=== PATIENT | male | born 1995 ===

== ENCOUNTER 2018-03-05 17:45 | Emergency (ER) | payer OTHER ==
[2018-03-05 18:02] VITALS: RESP 18
--- NOTE | 2018-03-05 19:08 | C.PDOC ---
History Of Present Illness 23-year-old male, presents to the emergency department with complaints of subjective fever. Patient woke up with several episodes of diarrhea, associated with mild crampy abdominal pain. Patient states he had a sore throat and cough 4 days ago and doctor gave him Zithromax. Patient denies recent travel, dysuria , shortness of breath, rash or chest pain. No other complaints at this time. Time Seen by Provider: 03/05/18 18:13 Chief Complaint (Nursing): Flu-like Symptoms History Per: Patient History/Exam Limitations: no limitations Current Symptoms Are (Timing): Still Present Radiation Of Pain To:: None Exacerbating Factors: None Alleviating Factors: None Past Medical History Reviewed: Historical Data, Nursing Documentation, Vital Signs Vital Signs: Last Vital Signs Temp 99.1 F 03/05/18 19:17 Pulse 88 03/05/18 19:17 Resp 18 03/05/18 19:17 BP 104/66 03/05/18 19:17 Pulse Ox 97 03/05/18 20:27 - Medical History PMH: No Chronic Diseases Family History: States: No Known Family Hx - Social History Hx Alcohol Use: Yes Hx Substance Use: No - Immunization History Hx Tetanus Toxoid Vaccination: No Hx Influenza Vaccination: No Hx Pneumococcal Vaccination: No Review Of Systems Except As Marked, All Systems Reviewed And Found Negative. Constitutional: Positive for: Fever Gastrointestinal: Positive for: Nausea, Vomiting, Abdominal Pain Skin: Negative for: Rash Physical Exam - Physical Exam Appears: Non-toxic, No Acute Distress Skin: Warm, Dry, No Rash Head: Atraumatic, Normacephalic Eye(s): bilateral: PERRL Ear(s): Bilateral: Normal Nose: Normal Oral Mucosa: Moist Lips: Normal Appearing Throat: No Erythema, No Exudate Neck: Normal ROM, Supple Chest: Symmetrical, No Tenderness Cardiovascular: Rhythm Regular, No Friction Rub, No Murmur Respiratory: Normal Breath Sounds, No Accessory Muscle Use, No Rales, No Rhonchi , No Stridor, No Wheezing Gastrointestinal/Abdominal: Bowel Sounds, Soft, No Tenderness Back: Normal Inspection, No CVA Tenderness Extremity: Normal ROM, No Tenderness, No Swelling Pulses: Left Dorsalis Pedis: Normal, Right Dorsalis Pedis: Normal Neurological/Psych: Oriented x3, Normal Speech, Normal Cranial Nerves, Normal Motor, Normal Sensation Gait: Steady ED Course And Treatment O2 Sat by Pulse Oximetry: 97 (RA) Pulse Ox Interpretation: Normal Medical Decision Making Medical Decision Making: Plan: * Pepcid, Motrin, Zofran * Reassess and Disposition On re-exam, the patient reports improvement of symptoms. Lungs are CTA, heart is RRR, abdomen is soft, non-tender and tolerating PO well. Ambulatory in the ED with steady gait. follow up with the medical doctor within 1-2 days. Return if worsened. Disposition - Disposition Referrals: Jasmin Jeff MD [Non-Staff] - Disposition: HOME/ ROUTINE Disposition Time: 19:05 Condition: GOOD Additional Instructions: Follow up with the medical doctor within 1-2 days. Return if worsened. Prescriptions: Famotidine [Pepcid] 20 mg PO BID #20 tab Ondansetron ODT [Zofran ODT] 1 odt PO BID PRN #10 odt PRN Reason: Nausea/Vomiting Instructions: Viral Syndrome (DC) Forms: [email or web address] (Thai) - Clinical Impression Clinical Impression: Vomiting, Diarrhea - Scribe Statement The provider has reviewed the documentation as recorded by the Scribe (Karolien Eubanks) All medical record entries made by the Scribe were at my direction and personally dictated by me. I have reviewed the chart and agree that the record accurately reflects my personal performance of the history, physical exam, medical decision making, and the department course for this patient. I have also personally directed, reviewed, and agree with the discharge instructions and disposition.
[2018-03-05 19:17] VITALS: BP 104/66; PULSE 88; TEMP 99.1
[2018-03-05 20:16] VITALS: O2SAT 97
== END 2018-03-05 19:24 | disposition home or self-care (01) ==
LOC: C.ER 17:45
DX: R19.7 Diarrhea, unspecified (principal); R11.10 Vomiting, unspecified